=== PATIENT | female | born 1940 | race Caucasian/White ===

== ENCOUNTER → 2018-04-20 | Outpatient (CLI) | payer MEDICARE | LOC: LAB SHORT 14:00 → LAB EV 14:00 | DX: R82.99 Other abnormal findings in urine (principal) | CPT/HCPCS: 87077; 87086; 87186 ==

== ENCOUNTER → 2019-06-19 | Outpatient (CLI) | payer MEDICARE | LOC: LAB EV 15:19 → LAB SHORT 15:19 | DX: R30.0 Dysuria (principal) | CPT/HCPCS: 87086 ==

== ENCOUNTER 2023-03-08 20:44 | Inpatient (IN) | payer MEDICARE | END 2023-03-12 16:57 | disposition home or self-care (01) | DRG 871 | LOC: ER 20:44 → MEDS 22:50 | PROVIDERS: ADMIT Internal Medicine | DX: A41.51 Sepsis due to Escherichia coli [E. coli] (principal); G92.8 Other toxic encephalopathy; N39.0 Urinary tract infection, site not specified; J45.909 Unspecified asthma, uncomplicated; E87.6 Hypokalemia; M54.50 Low back pain, unspecified; G89.29 Other chronic pain; R33.9 Retention of urine, unspecified; I10 Essential (primary) hypertension; I25.10 Atherosclerotic heart disease of native coronary artery without angina pectoris; Z79.891 Long term (current) use of opiate analgesic; Z79.899 Other long term (current) drug therapy ==

== ENCOUNTER → 2023-08-05 | Outpatient (CLI) | payer MEDICARE ==
[~2023-08-05] MED LIST: ACET325 PO; ALBU90OI INH; APAP PO; ATORVASTATIN CA20 MG PO; FURO20 PO; FUROSEMIDE20 MG PO; HYDROCO PO; LOSARTAN PO; Norvasc10 MG PO; QVAR REDIHALE10.6 G3 INH; TOPROL XL200 MG PO
== END ==
LOC: LAB 17:12 → LAB SHORT 17:12
DX: N39.0 Urinary tract infection, site not specified (principal)
CPT/HCPCS: 87077; 87086; 87186

== ENCOUNTER 2024-10-10 15:23 | Emergency (ER) | payer MEDICARE ==
[~2024-10-10] VITALS: Ht 162.6 cm; Wt 108.9 kg
[2024-10-10 16:02] LABS: Source, Urine Clean Catch
[2024-10-10 16:05] LABS: Appearance, Urine Clear (Clear); Bilirubin, Urine Neg (Neg); Blood, Urine Neg (Neg); Glucose Qualitative, Urine Neg (Neg); Ketones, Urine Neg (Neg); Leukocyte Esterase, Urine 1+ (Neg); Nitrite, Urine Neg (Neg); Protein, Urine Neg (Neg); Specific Gravity, Urine 1.005 (1.003-1.022); Urobilinogen, Urine NORM (Normal)
[2024-10-10 16:11] LABS: Color, Urine Pale Yellow (P-Yellow)
[2024-10-10 16:12] LABS: Bacteria Many /hpf; Red Blood Cells, Urine Not Seen /hpf (0-2); Squamous Epithelial Cells Rare /hpf (Few)
[2024-10-10 18:18] LABS: BASOPHILS ABSOLUTE AUTO 0.09 K/mm3 (0.00-0.23); BASOPHILS PERCENT AUTO 1 % (0-2); EOSINOPHILS ABSOLUTE AUTO 0.39 K/mm3 (0.00-0.68); EOSINOPHILS PERCENT AUTO 4 % (0-6); Hematocrit 37.9 % (33.0-51.0); Hemoglobin 12.3 g/dL (11.5-16.0); IMMATURE GRAN ABSOLUTE AUTO 0.08 K/mm3 (0.00-0.10); IMMATURE GRAN PERCENT AUTO 1 % (0-1); LYMPHOCYTES ABSOLUTE AUTO 2.21 K/mm3 (0.84-5.20); LYMPHOCYTES PERCENT AUTO 24 % (21-46); MONOCYTES ABSOLUTE AUTO 1.19 K/mm3 (0.16-1.47); MONOCYTES PERCENT AUTO 13 % (4-13); Mean Corpuscular HGB 30.9 pg (26.0-34.0); Mean Corpuscular HGB Conc 32.5 g/dL (31.5-36.5); Mean Corpuscular Volume 95 fL (80-100); Mean Platelet Volume 9.3 fL (9.1-12.4); NEUTROPHILS ABSOLUTE AUTO 5.29 K/mm3 (1.96-9.15); NEUTROPHILS PERCENT AUTO 57 % (41-73); Platelet Count 385 K/mm3 (150-400); RDW Coefficient Variation 13.8 % (11.7-14.2); RDW Standard Deviation 48.6 fL (35.1-46.3); Red Blood Cell Count 3.98 M/mm3 (3.80-5.20); White Blood Cell Count 9.25 K/mm3 (4.00-11.30)
[2024-10-10 18:42] LABS: Albumin, Blood 3.1 g/dL (3.4-5.0); Albumin/Globulin Ratio 0.8 (0.8-1.8); Bilirubin, Total 0.4 mg/dL (0.1-1.0); Bun/Creatinine Ratio 26.4 (12.0-20.0); Calcium, Blood 9.6 mg/dL (8.5-10.1); Creatinine, Blood 1.21 mg/dL (0.40-1.00); Globulin, Blood 3.8 g/dL (2.2-4.0); Potassium, Blood 4.6 mmol/L (3.5-5.5); Total Protein, Blood 6.9 g/dL (6.4-8.2)
[2024-10-10 19:27] LABS: Influenza A, PCR NEGATIVE (NEGATIVE); Influenza B, PCR NEGATIVE (NEGATIVE); Resp Syncytial Virus, PCR NEGATIVE (NEGATIVE); SARS-Cov-2 (COVID-19) PCR, MMC NEGATIVE (NEGATIVE)
[2024-10-10] MEDS ORDERED: BACTRIM DS TAB1 EAC1 PO (20:00)
[2024-10-10] MEDS ORDERED: Trimethoprim/Sulfamethoxazole DS Tab PO ONE (20:00)
[2024-10-10 20:26] VITALS: BP 152/74
== END 2024-10-10 20:27 | disposition home or self-care (01) ==
LOC: ER 15:23
PROVIDERS: Student in an Organized Health Care Education/Training Program
DX: N39.0 Urinary tract infection, site not specified (principal); I10 Essential (primary) hypertension; J45.909 Unspecified asthma, uncomplicated; I25.10 Atherosclerotic heart disease of native coronary artery without angina pectoris; Z79.899 Other long term (current) drug therapy
CPT/HCPCS: 0241U; 71046; 80053; 81001; 83880; 85025; 87077; 87086; 87186; 93005; 93010; 99284-25; A9270

== ENCOUNTER → 2025-02-28 | Outpatient (CLI) | payer MEDICARE ==
[~2025-02-28] MED LIST changes: +AMLODIPINE BESY10 MG PO; +BACTRIM DS TAB1 EAC1 PO; +CEPH500 PO; +HYDROCODONE-AC1 EAC7 PO; +POT CHLORIDE 20 MEQ; +TRAZ50
== END ==
LOC: LAB SHORT 13:17 → LAB 13:17
DX: R35.0 Frequency of micturition (principal)
CPT/HCPCS: 87077; 87086; 87186

== ENCOUNTER → 2025-03-06 | Day surgery (SDC) | payer MEDICARE | END | disposition home or self-care (01) | LOC: WOUND | DX: L89.152 Pressure ulcer of sacral region, stage 2 (principal); I48.91 Unspecified atrial fibrillation; Z87.891 Personal history of nicotine dependence | CPT/HCPCS: G0463 ==

== ENCOUNTER 2025-03-20 07:50 | Day surgery (SDC) | payer MEDICARE | END 2025-03-20 23:00 | disposition home or self-care (01) | LOC: WOUND 07:50 | DX: L89.152 Pressure ulcer of sacral region, stage 2 (principal) | CPT/HCPCS: G0463 ==

== ENCOUNTER → 2025-03-29 | Outpatient (CLI) | payer MEDICARE | END | disposition home or self-care (01) | LOC: LAB 14:56 → LAB SHORT 14:56 | DX: N39.0 Urinary tract infection, site not specified (principal) | CPT/HCPCS: 87077; 87086; 87186 ==

== ENCOUNTER 2025-04-03 02:35 | Day surgery (SDC) | payer MEDICARE | END 2025-04-03 23:00 | disposition home or self-care (01) | LOC: WOUND 02:35 | DX: L89.152 Pressure ulcer of sacral region, stage 2 (principal) | CPT/HCPCS: G0463 ==

== ENCOUNTER 2025-04-17 02:35 | Day surgery (SDC) | payer MEDICARE | END 2025-04-17 23:00 | disposition home or self-care (01) | LOC: WOUND 02:35 | DX: L89.152 Pressure ulcer of sacral region, stage 2 (principal); I48.91 Unspecified atrial fibrillation | CPT/HCPCS: G0463 ==